=== PATIENT | female | born 1980 | race Caucasian/White ===

== ENCOUNTER 2018-04-18 08:59 | Emergency (ER) | payer OTHER ==
[2018-04-18 09:22] VITALS: RESP 20
[2018-04-18 09:46] LABS: HCG,QUALITATIVE URINE POSITIVE (NEGATIVE)
[2018-04-18 09:55] LABS: SQUAMOUS EPITHIAL < 1 /hpf (0-5); URINE BACTERIA RARE (<OCC); URINE BILIRUBIN NEGATIVE (NEGATIVE); URINE BLOOD NEGATIVE (NEGATIVE); URINE CLARITY Clear (Clear); URINE COLOR Straw (YELLOW); URINE GLUCOSE (UA) NORMAL (Normal); URINE LEUKOCYTE ESTERASE NEG Leu/uL (Negative); URINE PROTEIN NEGATIVE (NEGATIVE); URINE UROBILINOGEN NORMAL mg/dL (0.2-1.0)
[2018-04-18 10:44] LABS: BASO # 0.1 K/uL (0.0-0.2); BASO % 1.1 % (0.0-2.0); EOS # 0.1 K/uL (0.0-0.7); EOS % 1.4 % (0.0-4.0); HEMOGLOBIN 12.3 g/dL (11.0-16.0); LYMPH % 15.2 % (20.0-40.0); MEAN CELL VOLUME 87.9 fL (81.0-99.0); MEAN CORPUSCULAR HEMOGLOBIN 29.4 pg (27.0-31.0); MEAN CORPUSCULAR HGB CONC 33.5 g/dL (33.0-37.0); MEAN PLATELET VOLUME 8.5 fL (7.2-11.7); MONO # 0.3 K/uL (0.0-0.8); MONO % 5.1 % (0.0-10.0); NEUT % 77.2 % (50.0-75.0); RBC 4.18 Mil/uL (3.80-5.20); RED CELL DISTRIBUTION WIDTH 12.8 % (11.5-14.5); WHITE BLOOD COUNT 6.5 K/uL (4.8-10.8)
[2018-04-18 11:01] LABS: ALB/GLOB RATIO 1.5 (1.0-2.1); ALBUMIN 4.3 g/dL (3.5-5.0); ALT/SGPT 17 U/L (9-52); AST/SGOT 23 U/L (14-36); BLOOD UREA NITROGEN 6 mg/dL (7-17); CALCIUM 9.2 mg/dl (8.6-10.4); GFR NON-AFRICAN AMERICAN > 60
--- NOTE | 2018-04-18 11:13 | C.PDOC ---
History Of Present Illness 37 year old female presents to ED complaining of vaginal spotting that began this morning. Patient is 12 weeks and saw her doctor 3 weeks ago for a pelvic ultrasound. The ultrasound came back normal. She is currently 12 weeks . , P:0,A:0. Patient's last menstrual period was on 01/27/18. No active bleeding at time of admission. Patient denies feeling any abdominal pain or experiencing any dysuria or hematuria. Time Seen by Provider: 04/18/18 09:19 Chief Complaint (Nursing): Female Genitourinary History Per: Patient History/Exam Limitations: no limitations Onset/Duration Of Symptoms: Hrs Current Symptoms Are (Timing): Still Present Quality Of Discomfort: denies: "Pain" Associated Symptoms: denies: Urinary Symptoms, Other (abdominal pain) Last Menstral Period: 01/27/18 : 1 Para: 0 Miscarriage: 0 Past Medical History Reviewed: Historical Data, Nursing Documentation, Vital Signs Vital Signs: Last Vital Signs Temp 97.9 F 04/18/18 09:10 Pulse 107 H 04/18/18 09:10 Resp 20 04/18/18 09:10 BP 117/71 04/18/18 09:10 Pulse Ox 97 04/18/18 09:10 - Medical History PMH: Hypothyroidism ( induced) Surgical History: No Surg Hx Family History: States: Unknown Family Hx - Social History Hx Alcohol Use: No Hx Substance Use: No - Immunization History Hx Tetanus Toxoid Vaccination: No Hx Influenza Vaccination: No Hx Pneumococcal Vaccination: No Review Of Systems Constitutional: Negative for: Fever, Chills, Weakness Cardiovascular: Negative for: Chest Pain Respiratory: Negative for: Cough, Shortness of Breath Gastrointestinal: Negative for: Abdominal Pain Genitourinary: Positive for: Vaginal Bleeding (spotting). Negative for: Dysuria, Hematuria Neurological: Negative for: Weakness, Numbness, Dizziness Physical Exam - Physical Exam Appears: Well, Non-toxic, No Acute Distress Skin: Normal Color, Warm, Dry Head: Atraumatic, Normacephalic Neck: Normal ROM, Supple Chest: Deformity, No Tenderness Cardiovascular: Rhythm Regular, No Murmur Respiratory: No Accessory Muscle Use Gastrointestinal/Abdominal: Soft, No Tenderness Pelvic: No Vaginal Bleeding Extremity: Capillary Refill (<2 seconds) Extremity: Bilateral: Atraumatic, Normal Color And Temperature Pulses: Left Radial: Normal, Right Radial: Normal Neurological/Psych: Oriented x3, Normal Speech, Normal Cognition ED Course And Treatment - Laboratory Results Result Diagrams: 04/18/18 10:38 04/18/18 10:38 Lab Results: Total Bilirubin 0.3 mg/dL (0.2-1.3) 04/18/18 10:38 AST 23 U/L (14-36) 04/18/18 10:38 ALT 17 U/L (9-52) 04/18/18 10:38 Alkaline Phosphatase 53 U/L (38-126) 04/18/18 10:38 Total Protein 7.1 g/dL (6.3-8.3) 04/18/18 10:38 Albumin 4.3 g/dL (3.5-5.0) 04/18/18 10:38 Globulin 2.8 gm/dL (2.2-3.9) 04/18/18 10:38 Albumin/Globulin Ratio 1.5 (1.0-2.1) 04/18/18 10:38 Urine Color Straw (YELLOW) 04/18/18 09:41 Urine Clarity Clear (Clear) 04/18/18 09:41 Urine pH 6.0 (5.0-8.0) 04/18/18 09:41 Ur Specific Dawes 1.002 (1.003-1.030) L 04/18/18 09:41 Urine Protein Negative mg/dL (NEGATIVE) 04/18/18 09:41 Urine Glucose (UA) Normal mg/dL (Normal) 04/18/18 09:41 Urine Ketones Negative mg/dL (NEGATIVE) 04/18/18 09:41 Urine Blood Negative (NEGATIVE) 04/18/18 09:41 Urine Nitrate Negative (NEGATIVE) 04/18/18 09:41 Urine Bilirubin Negative (NEGATIVE) 04/18/18 09:41 Urine Urobilinogen Normal mg/dL (0.2-1.0) 04/18/18 09:41 Ur Leukocyte Esterase Neg Angel/uL (Negative) 04/18/18 09:41 Urine WBC (Auto) 1 /hpf (0-5) 04/18/18 09:41 Urine RBC (Auto) < 1 /hpf (0-3) 04/18/18 09:41 Ur Squamous Epith Cells < 1 /hpf (0-5) 04/18/18 09:41 Urine Bacteria Rare (<OCC) 04/18/18 09:41 Urine HCG, Qual Positive (NEGATIVE) 04/18/18 09:41 Urine HCG, Qual Positive (NEGATIVE) 04/18/18 09:41 O2 Sat by Pulse Oximetry: 97 (RA) - CT Scan/US OB Pelvic US Other Rad Studies (CT/US): Interpreted By Me, Read By Radiologist CT/US Interpretation: Accession No. : [id number]. Patient Name / ID : SHANON MILLER / [id number]. Exam Date : 04/18/2018 11:06:12 ( Approved ). Study Comment : Sex / Age : F / 37Y. Creator : Jaden Lopez MD. Dictator : Jaden Lopez MD. Specification Manager : Manager Of Disaster Recovery : Jaden Lopez MD. Approver2 : Report Date : 04/18/2018 11:45:46. My Comment : . Date of service: 04/18/2018. PROCEDURE: OB Pelvic Ultrasound. HISTORY: vaginal spotting, 12 wks . 01/27/2018. COMPARISON: None available. FINDINGS: UTERUS: Gestational sac: Sac diameter is 44 mm equivalent to 10 weeks 0 days. Hendrum-rump length 21 mm equivalent to 8 weeks 5 days. Heart rate: 0 bpm. None detectable. age (Ultrasound estimated): 9 weeks 3 days. Lin-gestational hemorrhage: None. Date of delivery (Ultrasound estimated) : 11/18/2018. 3 mm yolk sac identified. Uterus measures 10.2 x 7.4 x 7.0 cm. Normal in size and appearance. CERVIX: Measures 2.7 cm. Long and closed. No cervical abnormality seen. RIGHT OVARY: Measures 3.1 x 1.4 x 2.2 cm. No mass lesion. Normal flow. LEFT OVARY: Measures 3.0 x 1.5 x 2.8 cm. No solid mass. Normal flow. FREE FLUID: None. OTHER FINDINGS: None. IMPRESSION: Intrauterine gestation of approximately 9 weeks 3 days. No detectable cardiac activity. Consistent with demise. No dyson bchorionic hemorrhage. Progress Note: Labs ordered with UA for patient. Pelvic US ordered. US result is consistant with demise. Patient was d/c home with OBGYN follow up. All explanations were given, patient had opportunities to ask questions. Disposition - Disposition Disposition: HOME/ ROUTINE Disposition Time: 13:28 Condition: STABLE Additional Instructions: Follow up with PMD and OBGYN within 1-2 days. Return to ED if feel worse. Instructions: Bleeding With (DC) Forms: [employer] (Italian) - Clinical Impression Clinical Impression: demise - PA / WOOD INSPECTOR / Resident Statement MD/DO has reviewed & agrees with the documentation as recorded. (Tova Otero) - Scribe Statement The provider has reviewed the documentation as recorded by the Scribe (Tova Otero) All medical record entries made by the Scribe were at my direction and personally dictated by me. I have reviewed the chart and agree that the record accurately reflects my personal performance of the history, physical exam, medical decision making, and the department course for this patient. I have also personally directed, reviewed, and agree with the discharge instructions and disposition.
--- NOTE | 2018-04-18 11:49 | US ---
Date of service: 04/18/2018 PROCEDURE: OB Pelvic Ultrasound HISTORY: vaginal spotting, 12 wks 01/27/2018 COMPARISON: None available. FINDINGS: UTERUS: Gestational sac: Sac diameter is 44 mm equivalent to 10 weeks 0 days. Wilmont-rump length 21 mm equivalent to 8 weeks 5 days. Heart rate: 0 bpm. None detectable. age (Ultrasound estimated): 9 weeks 3 days Lin-gestational hemorrhage: None Date of delivery (Ultrasound estimated) : 11/18/2018 3 mm yolk sac identified Uterus measures 10.2 x 7.4 x 7.0 cm. Normal in size and appearance. CERVIX: Measures 2.7 cm. Long and closed. No cervical abnormality seen. RIGHT OVARY: Measures 3.1 x 1.4 x 2.2 cm. No mass lesion. Normal flow. LEFT OVARY: Measures 3.0 x 1.5 x 2.8 cm. No solid mass. Normal flow. FREE FLUID: None. OTHER FINDINGS: None. IMPRESSION: Intrauterine gestation of approximately 9 weeks 3 days. No detectable cardiac activity. Consistent with demise. No subchorionic hemorrhage.
[2018-04-18 14:08] VITALS: BP 108/71; PULSE 100; TEMP 98.8
[2018-04-18 14:17] VITALS: O2SAT 97
== END 2018-04-18 14:08 | disposition home or self-care (01) ==
LOC: C.ER 08:59
DX: O02.1 Missed abortion (principal)

== ENCOUNTER 2018-04-20 09:29 | Day surgery (SDC) | payer OTHER ==
[2018-04-20 10:16] VITALS: O2SAT 100
[2018-04-20] MEDS ORDERED: Lidocaine Hydrochloride 5 ML INJ ONE (11:03)
[2018-04-20] MEDS ORDERED: Propofol 10 mg/ml Inj (20 ML) ONE ×2 (11:03→11:30)
[2018-04-20] MEDS ORDERED: Midazolam 2 MG/2 ML VIAL ONE ×2 (11:03→11:30)
[2018-04-20] MEDS ORDERED: Oxytocin 20 units in LR 0 ML IV ONE (11:07)
[2018-04-20] MEDS ORDERED: ceFOXitin IV 1 gm/100 ml in NS 0 GM/0 ML BAG ONE (11:07)
[2018-04-20] MEDS ORDERED: Oxycodone/Acetaminophen 5/325 mg Tab PO PRN (12:01)
--- NOTE | 2018-04-20 12:06 | PCM.OP ---
Operative Report - Operative Report Date of Surgery/Procedure: 04/20/18 Time of Surgery/Procedure: 11:30 Surgeon: Johny Cabrera Cemetery Manager: None Anesthesia/Sedation: MAC Pre-Operative Diagnosis: Missed Post-Operative Diagnosis: same as preop diagnosis Indication for Surgery: Missed Operative Findings: Anteverted approx 10 weeks size uterus Procedure/Operation Description: The patient was taken to the operating room wher she placed in doral supine position.General anesthesia was given and LMA airway was placed as reported to me. The patient was thereafter placed in dorsal supine position.The patient was prepped and draped in usual sterile fashion in lithotomy position.The urinary bladder was drained with a catheter for approx 70 cc of urine.A speculum was placed in the vagina. The anterior lip of the cervix was grasped with a single tooth tenaculum. At this time, a 8-mm suction curettage was advanced into the uterine cavity without difficulty and was used to suction contents of the uterus. Following removal of the products of conception, a sharp curette was advanced into the uterine cavity and was used to scrape the four lester of the uterus until a gritty texture was noted. At this time, the suction curette was advanced one additional time to suction any remaining products. All instruments were removed. The tenaculum site was noted to be hemostatic.A dose of im methergine was given by anesthesia team.The patient was takne out of lithotomy position.The LMA was removed.The patient was cleaned and taken to recovery room for stable condition.The patient was stable at the completion of the procedure. Sponge, lap, and instrument counts were correct as reported to me Estimated Blood Loss: 150cc Complications: none Specimen: products of conception for pathology and chromosome Discharge & Condition: Patient stable when discharged to recovery
[2018-04-20 13:27] VITALS: BP 105/59; PULSE 70; RESP 18; TEMP 97
== END 2018-04-20 13:29 | disposition home or self-care (01) ==
LOC: C.SDS 09:29
PROVIDERS: ATTEND Student in an Organized Health Care Education/Training Program
DX: O02.1 Missed abortion (principal)
CPT/HCPCS: 59820; 88233; 88262; 88305; J2210; J2250; J2270; J2704; J3010